=== PATIENT | female | born 1950 | race Caucasian/White ===

== ENCOUNTER → 2017-01-01 | Day surgery (SDC) | payer MEDICARE ==
[~2017-01-01] MED LIST: BACITRACIN IM FOR SOLN 50,000 UNIT VIAL ONE; GENTAMICIN SULFATE 80 MG/2 ML VIAL ONE; HYDROmorphone HCL PF 2 MG/ML VIAL ONE; KETOROLAC TROMETHAMINE 30 MG/ML (IVP) VIAL IV PUSH ONE; LACTATED RINGER'S 1000 ML INJ 1,000 ML ONE; LIDOCAINE 1%/EPINEPHrine 1:100,000 SOLN 20 ML VIAL ONE; MEPERIDINE HCL 25 MG/ML VIAL ONE; MIDAZOLAM HCL 2 MG/2 ML VIAL ONE; MORP15TA73 PO; MORP60TA24 PO; ONDANSETRON HCL 4 MG/2 ML VIAL IV PUSH ONE; PROPOFOL 100 MG/10 ML INJ IV ONE; SODIUM CHLORIDE 0.9% 20 ML VIAL ONE; TIZA2CAP3 PO; TIZA4TAB PO; ceFAZolin 2 GM PREMIX 50 ML ONE; ceFAZolin INJ 1,000 MG VIAL ONE
--- NOTE | 2017-01-03 09:19 | MP ---
cc: CAMACHO ARIAS M.D. DATE OF SURGERY 01/01/2017 PREOPERATIVE DIAGNOSIS Bilateral silicone gel ruptured implants with grade 4 calcified capsules, left side more leakage than right. POSTOPERATIVE DIAGNOSIS Bilateral silicone gel ruptured implants with grade 4 calcified capsules, left side more leakage than right. OPERATION Bilateral breast implant removal including gel silicone granulomas and bilateral total capsulectomies, right side in one piece, left side in two parts. SURGEON Dr. Arias. ANESTHESIA General. INDICATIONS A 66-year-old white female with previous bilateral mastectomies for noncancerous issue, had reconstruction with silicone gel implants going back 30-some years and they are heavily capsulated. Also, the left implant is leaking on radiological examination. They were both found to be leaking at the surgery. The patient had undergone detailed explanation of the removal of both implants, the silicone gel seromas and the capsulectomies through an inframammary approach and the possible risks, complications, pros, cons and appearance of the breast after surgery were discussed and she is willing to go ahead with the same procedure. PROCEDURE The patient was brought to the operating room, was given supine position. Anesthesia was started. Prep and drape was done. IV antibiotic had been given. Time-out was called and completed. The previous surgical inframammary scars were used and extended in both directions in order to remove the calcified implant plus capsule in one piece if possible. The soft tissues were injected with a mixture of lidocaine with epi and saline surrounding the entire capsule. On the right side the implant was approached directly and dissection was continued outside the capsule removing most of the silicone gel granulomas popping outside the capsule all in the same specimen. A few needed to be separately resected. It was possible to remove the entire implant and capsule in one piece and the silicone gel material without any difficulty. The cavity was wiped clean of the visible silicone, was washed and packed with a lap sponge. On the left side a similar approach was used. The implant capsule was, however, was extremely adherent to the anterior aspect and nipple areolar complex area and it was not possible to separate it without breaking into the capsule. The capsule was opened along the inferior border widely and the implant was removed. It was noted to be dehisced on the upper outer aspect and had a Dacron patch configuration on the back. The implant on the right side was weighed at 220 grams and the implant itself should be approximately 210 grams or 200 gram range. On the left side the implant could not be weighed because it was totally ruptured. The inside of the capsule was grossly wiped off with a lap sponge and the dissection was continued outside the capsule. It was necessary to separate the skin anteriorly and the nipple anteriorly from the very dense adhesions and a portion of what appeared to be a previous surgical scar was extremely thin and it was excised and discarded as it would not survive postoperatively. Once the capsule was completely removed, the cavity was double-checked again. Hemostasis was excellent on both side. Both sides were copiously irrigated clean with saline solution. #7 flat Florencio-Meza drains were used and brought outside using the lateral end of the incision on each side. The soft tissues were closed with Vicryl. The breast tissue on the left side needed to be rearranged with Vicryl as well to provide some structural thickness to the nipple-areolar complex area since there was no tissue left between the skin and the capsule by itself. The resulting puckering in the center should dissipate over time. The skin was closed with 4-0 Prolene. The drains were secured and activated. The patient remained stable. Intraoperative blood loss less than 20 mL. No complications. signed, not fully reviewed MD ROBERT Naqvi/KATHI /9:04 AM /8:06 AM MTDCelso
== END | disposition home or self-care (01) ==
LOC: ESDC 06:36
PROVIDERS: ATTEND Plastic Surgery
DX: Z90.13 Acquired absence of bilateral breasts and nipples (principal); T85.49XA Other mechanical complication of breast prosthesis and implant, initial encounter
CPT/HCPCS: 00402; 19328; 19371; 88305; J0690; J1170; J1580; J1885; J2175; J2250; J2405; J3010; J7120